=== PATIENT | male | born 1965 | race Caucasian/White ===

== ENCOUNTER 2018-03-15 14:15 | Emergency (ER) | payer BC ==
[~2018-03-15] VITALS: Ht 190.5 cm; Wt 143.7 kg
[~2018-03-15 14:15] MED LIST: ALEVE220 MG PO; AMLODIPINE BESY10 MG PO; BENTYL20 MG PO; DOCUSATE SODIU100 MG PO; ENDOCET 5-3251 EACH PO; FLOMAX0.4 MG PO; LOTENSIN10 MG PO; TYLENOL REGULA325 MG PO; ZOFRAN4 MG PO
[2018-03-15 15:09] LABS: HEMATOCRIT 45.8 % (38.0-50.0); HEMOGLOBIN 16.2 G/DL (12.5-16.6); MCH 30.7 PG (29.0-34.0); MCHC 35.4 G/DL (30.0-36.0); MCV 86.7 FL (86-99); PLATELET COUNT 238 K/uL (156-360); RBC DIS.WIDTH-CV 12.7 % (11.8-14.6); RBC DIS.WIDTH-SD 39.7 % (39-53); RED BLOOD COUNT 5.28 M/uL (4.00-5.50); WHITE BLOOD COUNT 5.8 K/uL (4.1-10.2)
[2018-03-15 15:19] LABS: ALBUMIN 4.3 g/dL (3.2-4.8); CHLORIDE 110 mEq/L (99-109); POTASSIUM 3.7 mEq/L (3.7-5.4); SODIUM 140 mEq/L (136-147)
[2018-03-15 15:21] LABS: GLUCOSE 107 mg/dL (70-99)
[2018-03-15 15:23] LABS: TOTAL BILIRUBIN 0.7 mg/dL (0.0-1.0)
[2018-03-15 15:25] LABS: ALKALINE PHOSPHATASE 89 IU/L (3-129); CREATININE 1.5 mg/dL (0.6-1.3); GFR ESTIMATE (CALCULATED) 52 mL/min/ (58.99-99999)
[2018-03-15 15:26] LABS: UREA NITROGEN (BUN) 20 mg/dL (9-23)
[2018-03-15 15:27] LABS: AST (GOT) 51 IU/L (2-34)
[2018-03-15 15:28] LABS: ALT (GPT) 80 IU/L (3-49)
[2018-03-15 16:06] LABS: DIRECT BILIRUBIN 0.2 mg/dL (0.0-0.3); LIPASE 26 U/L (1.0-51.0)
[2018-03-15 16:10] LABS: TROP-I INTERPRETATION NEGATIVE; TROPONIN-I < 0.01 ng/mL (0.0-0.30)
[2018-03-15 16:37] LABS: APPEARANCE CLEAR ((CLEAR)); BILIRUBIN NEGATIVE; BLOOD NEGATIVE; COLOR YELLOW ((YELLOW)); GLUCOSE (STRIP) NEGATIVE; KETONES NEGATIVE; LEUKOCYTES NEGATIVE; NITRITE NEGATIVE; PROTEIN (STRIP) NEGATIVE; SPECIFIC GRAVITY 1.028 (1.000-1.030); UCUL ADDED? NO
[2018-03-15] MEDS ORDERED: NORCO 5/3251 TABLET PO (18:16)
[2018-03-15] MEDS ORDERED: STOOL SOFTENER250 MG PO (18:16)
[2018-03-15 18:44] VITALS: BP 143/87
== END 2018-03-15 18:44 | disposition home or self-care (01) ==
LOC: EME 14:15
DX: K43.9 Ventral hernia without obstruction or gangrene (principal); K42.9 Umbilical hernia without obstruction or gangrene; E66.01 Morbid (severe) obesity due to excess calories; Z90.5 Acquired absence of kidney; I70.0 Atherosclerosis of aorta; I10 Essential (primary) hypertension; Z87.891 Personal history of nicotine dependence; Z68.39 Body mass index [BMI] 39.0-39.9, adult
CPT/HCPCS: 74176; 74177; 80053; 81003; 82248; 83690; 84484; 85027; 93005; 99281; 99284; J7030